=== PATIENT | female | born 1965 | race Caucasian/White ===

== ENCOUNTER 2019-03-23 12:31 | Day surgery (SDC) | payer BC ==
[2019-03-22 12:16] VITALS: BMI 28.2
[2019-03-23] MEDS ORDERED: Fentanyl 100 MCG/2 ML VIAL ONE (16:15)
[2019-03-23] MEDS ORDERED: Bupivacaine HCl 0.5%/Epinephrine 1:200,000/PF 30 ml Vial ONE (17:02)
[2019-03-23] MEDS ORDERED: Propofol 500 MG/50 ML VIAL ONE ×2 (17:19→17:33)
[2019-03-23] MEDS ORDERED: Midazolam HCl 2 mg/2 ml Vial ONE (17:24)
[2019-03-23] MEDS ORDERED: Meperidine HCl/PF 25 MG/ML VIAL ONE (17:24)
--- NOTE | 2019-03-23 22:05 | OP ---
DATE OF PROCEDURE: 03/23/2019 PREOPERATIVE DIAGNOSES: 1. Chronic pain syndrome. 2. Post-laminectomy syndrome. 3. Lumbar radiculopathy. 4. Erosion of lead anchor with skin infection. POSTOPERATIVE DIAGNOSES: 1. Chronic pain syndrome. 2. Post-laminectomy syndrome. 3. Lumbar radiculopathy. 4. Erosion of lead anchor with skin infection. PROCEDURES PERFORMED: 1. Removal of SCS battery. 2. Removal of lead x2. 3. Removal of extensions x2. 4. Removal of anchors x2. SPECIMENS REMOVED: See above. All intact, all disposed. ESTIMATED BLOOD LOSS: 5 mL. DESCRIPTION OF PROCEDURE: The patient was taken to the procedure room, placed prone on the procedure room table. A time-out was performed. Using DuraPrep, the back was prepped and sterile drapes were applied. The skin above the battery site and the anchors was anesthetized using 0.5% Marcaine with epinephrine. We took care not to anesthetize or stick a needle into any erythematous skin. An incision was made with a 10 blade scalpel at both levels and again not through the erythematous skin where the presumed infection was, but inferior to it. This was blunt dissected down to fascia. The battery pocket was opened and the battery was removed easily. This was disconnected from the wire. The battery was removed and discarded. The extensions were then dissected out and removed intact and discarded. The anchors were then dissected and removed with the leads at the same time x2. These were also removed intact. Irrigation was performed. Vancomycin powder was then placed through the anchor sites. The battery pocket was cauterized and Vicryl sutures were used to collapse the pocket. 0 Vicryl sutures were used to approximate the fascia on both sides. [place] were used to approximate the skin layer. Telfa dressing and sterile 4x4s were placed on top of this. The patient was taken to the PACU under stable condition. Job ID: [id number]
== END 2019-03-23 19:50 | disposition home or self-care (01) ==
LOC: SDC 12:31
PROVIDERS: ATTEND Specialist
PROC: 0JPT0MZ Removal of Stimulator Generator from Trunk Subcutaneous Tissue and Fascia, Open Approach (ICD-10-PCS; principal; 2019-03-23)
PROC: 00PU3MZ Removal of Neurostimulator Lead from Spinal Canal, Percutaneous Approach (ICD-10-PCS; principal; 2019-03-23)
DX: T85.733A Infection and inflammatory reaction due to implanted electronic neurostimulator of spinal cord, electrode (lead), initial encounter (principal); M96.1 Postlaminectomy syndrome, not elsewhere classified; G89.4 Chronic pain syndrome; M51.16 Intervertebral disc disorders with radiculopathy, lumbar region; I10 Essential (primary) hypertension; Z79.899 Other long term (current) drug therapy; Z88.5 Allergy status to narcotic agent; Z88.8 Allergy status to other drugs, medicaments and biological substances; Z91.048 Other nonmedicinal substance allergy status
CPT/HCPCS: J0670; J2175; J2250; J2704; J3010; J3370

== ENCOUNTER 2019-04-07 13:28 | Outpatient (CLI) | payer BC ==
--- NOTE | 2019-04-07 13:55 | RAD ---
Two views lumbar spine: 04/07/19 HISTORY: Evaluate for residual fragments of a removed stimulator lead. FINDINGS: There is no radiographic evidence of a generator or leads associated with a dorsal nerve root stimula tor. There are bilateral transpedicular screws at L5 and S1 without perihardware lucency. Disc prosth esis at L5-S1. Five lumbar type vertebrae. No fractures. There is a laminectomy defect at L5. IMPRESSION: No radiographic evidence of a dorsal column stimulator. POS: VIRAJ
[2019-04-07 14:07] LABS: Estimated GFR-MDRD - POC Greater than 90
[2019-04-07] MEDS ORDERED: Magnevist 469MG/ML 20 ML VIAL ONE (14:36)
--- NOTE | 2019-04-07 15:29 | MRI ---
MRI lumbar spine with and without contrast: 04/07/2019 COMPARISON: 12/31/2012 HISTORY: Intervertebral disc disorder with radiculopathy, prior lumbar spine surgery recent removal o f a pain stimulator secondary to infection. TECHNIQUE: Multiplanar multisequence MR imaging of the lumbar spine with and without contrast FINDINGS: On the basis of 5 lumbar type vertebral bodies, conus medullaris terminates at T12-L1. T12-L1: Intervertebral disc height and signal intensity within normal limits with no significant cent ral canal or neural foraminal stenosis. L1-2: Mild bilateral facet hypertrophy. Intervertebral disc height and signal intensity within normal limits with no significant central canal or neural foraminal stenosis. L2-3: Mild bilateral facet hypertrophy. Intervertebral disc height and signal intensity within normal limits. Mild facet hypertrophy bilaterally, right greater than left. No significant central canal or neural foraminal stenosis. L3-4: Intervertebral disc height and signal intensity within normal limits. Bilateral facet hypertrop hy and hypertrophy of the ligamentum flavum. There is fluid signal intensity within the facet joint on the right, similar when compared to the prior examination. No significant central canal or neural foraminal stenosis. L4-5: Bilateral facet hypertrophy with hypertrophy of the ligamentum flavum, progressed since the maurice or exam. Mild central canal stenosis, new. On the basis of facet disease there is mild/moderate right neural foraminal stenosis and severe left neural foraminal stenosis, worsened bilaterally when compared to the prior examination. L5-S1: Intervertebral disc device noted. Bilateral L5 and S1 pedicle screws are present. Bilateral la minectomy changes are present at the L5-S1 level. No significant central canal or neural foraminal stenosis. STIR imaging demonstrates significant nonspecific diffuse increased signal intensity within the poste rior subcutaneous fat from the axial level of the L1-2 intervertebral disc space to the axial level of the upper sacrum, new when compared to the prior examination. There is a fluid collection centered within the posterior midline subcutaneous fat at the axial level of the L1-2 interspace measuring 2.5 x 3.1 x 1.9 cm, new when compared to the prior exam. The postcontrast imaging demonstrates rim en hancement of the above-described fluid collection at the axial level of the L1-2 interspace posterior to the spinous process of the L1 vertebral body. There is minimal enhancement of the cloth trimmer hand ior subcutaneous fat from the L1-2 level through the sacrum in the region of the above-described subcutaneous adipose edema. The postcontrast imaging demonstrates no abnormal enhancement involving the imaged osseous structures , including the L1 spinous process. There is also no abnormal enhancement involving the intervertebral discs or the contents of the thecal sac. Review of the retroperitoneal structures demonstrates no abnormality. IMPRESSION: Postoperative and degenerative change within the lumbar spine as detailed above. The most significant stenosis involves the bilateral neural foramina at the L4-5 level. There is diffuse edematous change within the subcutaneous fat posteriorly which may be on the basis o f cellulitis given recent removal of pain stimulator for infection. In addition, the nonspecific fluid collection posterior to the L1 spinous process within the subcutaneous fat could represent a st erile or infected collection on the basis of abscess given provided history. Clinical correlation is essential. This fluid collection is likely amenable to ultrasound-guided aspiration. CODE T
== END 2019-04-07 13:29 | disposition home or self-care (01) ==
LOC: SCSMRI 13:28 → BICMRI 13:29
PROVIDERS: ATTEND Specialist
DX: M51.16 Intervertebral disc disorders with radiculopathy, lumbar region (principal); M48.061 Spinal stenosis, lumbar region without neurogenic claudication; M47.26 Other spondylosis with radiculopathy, lumbar region; R60.0 Localized edema; Z98.890 Other specified postprocedural states
CPT/HCPCS: 72100; 72158; 82565; A9579